=== PATIENT | male | born 1950 ===

== ENCOUNTER → 2021-09-17 | Day surgery (SDC) | payer OTHER ==
[~2021-09-17] VITALS: Ht 175.3 cm; Wt 77.3 kg
[~2021-09-17] MED LIST: AMLO5 PO; CARV3.125 PO; LEVSOD75 PO; LISI20 PO; LORA10ER PO
--- NOTE | 2021-09-17 13:06 | NUR ---
Ambulatory in Day Surgery History, Chart, Medications and Allergies reviewed before start of procedure. Lungs clear T/O to Auscultation. Pre-Op teaching done. Pt verbalizes understanding. Patient States Post-Procedure ride home has been arranged.
--- NOTE | 2021-09-17 14:18 | NUR ---
09/17/21 1418 Amira Trujillo HISTORY, CHART, MEDICATIONS AND ALLERGIES REVIEWED BEFORE START OF PROCEDURE. PATIENT CONFIRMS NPO STATUS AND AGREES WITH SCHEDULED PROCEDURE. 3-LEAD EKG REVIEWED WITH PHYSICIAN PRIOR TO START OF PROCEDURE. MONITOR INTACT WITH CONTINUOUS PULSE OXIMETRY,CAPNOGRAPHY, 3-LEAD EKG, INTERMITTENT BP. SUPPLEMENTAL O2 TO BE TITRATED THROUGHOUT PROCEDURE TO MAINTAIN O2 SATURATION ABOVE 90%. PATIENT DETERMINED TO BE ASA APPROPRIATE FOR PROPOFOL SEDATION PRIOR TO START OF PROCEDURE BY DR. SANCHEZ
--- NOTE | 2021-09-17 14:18 | NUR ---
RECIEVED PATIENT VSS.
--- NOTE | 2021-09-17 14:41 | NUR ---
Discharge instructions reviewed with patient. Patient verbalizes understanding. Copy given to patient to take home. Patient States Post-Procedure ride home has been arranged. Discharged via wheelchair to private car for ride home.
== END ==
LOC: ORSCMMR 11:58 → ORD 13:30
PROVIDERS: Surgery
PROC: 0DJD8ZZ Inspection of Lower Intestinal Tract, Via Natural or Artificial Opening Endoscopic (ICD-10-PCS; principal; 2021-09-17 13:30)
DX: Z12.11 Encounter for screening for malignant neoplasm of colon (principal); Z85.038 Personal history of other malignant neoplasm of large intestine; Z86.010 Personal history of colon polyps; I10 Essential (primary) hypertension; E78.5 Hyperlipidemia, unspecified; E03.9 Hypothyroidism, unspecified; F43.10 Post-traumatic stress disorder, unspecified; Z79.899 Other long term (current) drug therapy
CPT/HCPCS: J2704; J7120

== ENCOUNTER 2021-09-18 13:16 | Day surgery (SDC) | payer OTHER ==
[~2021-09-18] VITALS: Ht 167.6 cm; Wt 77.8 kg
--- NOTE | 2021-09-18 13:36 | NUR ---
09/18/21 1336 ERYN SAEED PATIENT REPORTS BLISTER AT EYE WHERE SURGERY TO TAKE PLACE, OPENED AND DRAINED. PER DR. QUESADA OK TO PROCEED. NO DRAINAGE NOTED. NO FEVER.
== END 2021-09-18 14:57 | disposition home or self-care (01) ==
LOC: ORSCSDS 13:16
PROVIDERS: Ophthalmology
PROC: 08BRXZX Excision of Left Lower Eyelid, External Approach, Diagnostic (ICD-10-PCS; principal; 2021-09-18 14:30)
DX: D23.122 Other benign neoplasm of skin of left lower eyelid, including canthus (principal); H04.562 Stenosis of left lacrimal punctum; I10 Essential (primary) hypertension; E78.00 Pure hypercholesterolemia, unspecified; Z79.899 Other long term (current) drug therapy; Z85.038 Personal history of other malignant neoplasm of large intestine
CPT/HCPCS: 88305; J2704